=== PATIENT | female | born 1985 | race Caucasian/White ===

== ENCOUNTER 2018-03-29 15:19 | Emergency (ER) | payer SELFPAY ==
[2018-03-29 15:28] VITALS: BP 125/83
--- NOTE | 2018-03-29 16:02 | ER Document Report ---
ED Medical Screen (RME) - General Chief Complaint: Ear Pain Stated Complaint: ER PAIN AND COUGH Time Seen by Provider: 03/29/18 15:48 Mode of Arrival: Ambulatory Information source: Patient TRAVEL OUTSIDE OF THE [place] IN LAST 30 DAYS: No - HPI Patient complains to provider of: Cough and ear pain Onset: Other - This is a healthy 33-year-old smoker that presents for pain in her left ear which radiates into her face on occasion as well as a persistent cough over the last several days. She is not take anything to try and help with it, nothing is made it better or worse. She is never had anything like this in the past, denies any fevers or chills does deny chest pain shortness of breath abdominal pain diarrhea constipation dysuria denies any recent substance use. She has been trying to use Q-tips to help relieve what feels like some fullness in her left ear without any symptom relief. - Related Data Allergies/Adverse Reactions: No Known Allergies Allergy (Unverified 03/29/18 15:23) Past Medical History - General Information source: Patient - Social History Cigarette use (# per day): Yes Chew tobacco use (# tins/day): No Frequency of alcohol use: None Drug Abuse: None Renal/ Medical History: Denies: Hx Peritoneal Dialysis Past Surgical History: Reports: Hx Section, Hx Cholecystectomy, Hx Tonsillectomy, Hx Tubal Ligation Review of Systems - Review of Systems -: Yes All other systems reviewed and negative Physical Exam - Vital signs Vitals: Temp Pulse Resp BP Pulse Ox 98.6 F 99 16 125/83 98 03/29/18 15:26 03/29/18 15:26 03/29/18 15:26 03/29/18 15:26 03/29/18 15:26 Interpretation: Normal - General General appearance: Appears well, Alert - HEENT Head: Normocephalic, Atraumatic Eyes: Normal Pupils: PERRL External canal: Erythema Tympanic membrane: Serous effusion - Respiratory Respiratory status: No respiratory distress Chest status: Nontender Breath sounds: Normal Chest palpation: Normal - Cardiovascular Rhythm: Regular Heart sounds: Normal auscultation Murmur: No - Abdominal Inspection: Normal Distension: No distension Bowel sounds: Normal Tenderness: Nontender Organomegaly: No organomegaly - Back Back: Normal, Nontender - Extremities General upper extremity: Normal inspection, Nontender, Normal color, Normal ROM, Normal temperature General lower extremity: Normal inspection, Nontender, Normal color, Normal ROM, Normal temperature, Normal weight bearing. No: Ellyn's sign - Neurological Neuro grossly intact: Yes Cognition: Normal Orientation: AAOx4 [place] Coma Scale Eye Opening: Spontaneous [place] Coma Scale Verbal: Oriented [place] Coma Scale Motor: Obeys Commands [place] Coma Scale Total: 15 Speech: Normal Motor strength normal: LUE, RUE, LLE, RLE Sensory: Normal - Psychological Associated symptoms: Normal affect, Normal mood - Skin Skin Temperature: Warm Skin Moisture: Dry Skin Color: Normal Course - Re-evaluation Re-evalutation: 03/29/18 17:55 33-year-old female who presents for evaluation of pain in the year as well as a persistent cough. On examination she is got inflammation and irritation in the external auditory canal on the left side. Her lungs are clear to auscultation she has no other systemic signs of infection at this time. She is a smoker and likely this is a contributor to her symptoms and the severity thereof. I do not believe this represents more serious underlying cause of her ear pain and cough such as but not limited to pulmonary embolism, cardiac disease, pneumonia, malignant otitis externa. I will plan for her to undergo discharge with conservative treatment of the inflammation in the left ear as well as treatment with Tessalon Perles for her cough. - Vital Signs Vital signs: Temp Pulse Resp BP Pulse Ox 98.6 F 99 16 125/83 98 03/29/18 15:26 03/29/18 15:26 03/29/18 15:26 03/29/18 15:26 03/29/18 15:26 Doctor's Discharge - Discharge Clinical Impression: Cough, Pain of structure of both ears, Rhinorrhea Condition: Stable Disposition: HOME, SELF-CARE Additional Instructions: You were seen today in the emergency department for your cough as well as the pain in your ear. You have been given a medicine to help with your cough and congestion, you should use any decongestion off the shelf that you prefer. You should stop smoking. You have been given eardrops to help with the swelling in your ear. Make sure to use them as directed 3 times daily. Return for worsening headache, fevers, chills or other symptoms. You should use Motrin 400 mg every 6 hours as needed for pain and 1 g of Tylenol every 6 hours as needed for pain. Prescriptions: Benzonatate [Tessalon Perle 100 mg Capsule] 100 mg PO Q8HP PRN #40 cap PRN Reason: Acetic Acid/Aluminum Acetate [Borofair Ear Drops] 4 - 6 drop OT Q3 #1 bottle Oxymetazoline HCl [Afrin] 20 ml NS TID #1 drops Forms: Smoking Cessation Education
== END 2018-03-29 16:32 | disposition home or self-care (01) ==
LOC: ER 15:19
DX: H92.02 Otalgia, left ear (principal); J34.89 Other specified disorders of nose and nasal sinuses; R05 Cough; F17.210 Nicotine dependence, cigarettes, uncomplicated
CPT/HCPCS: 99283